=== PATIENT | male | born 1965 | race Caucasian/White ===

== ENCOUNTER 2018-02-05 13:09 | Emergency (ER) | payer OTHER ==
[2018-02-05 13:20] VITALS: BP 138/84; PULSE 62; TEMP 98.4; BMI 24.7
[2018-02-05] MEDS ORDERED: LORATADINE 10 MG TABLET PO ONE (13:45)
--- NOTE | 2018-02-05 13:48 | PDOC ---
History of Present Illness - General Chief Complaint: Bite Stated Complaint: BUG BITE Time Seen by Provider: 02/05/18 13:36 History Source: Patient Exam Limitations: No Limitations - History of Present Illness Initial Comments: 02/05/18 13:50 This is a 50-year-old male without medical history who presents emergency departments with insect bites to his right arm sustained on . Patient states Sandys if she throughout the day yesterday but woke up this morning with some swelling and mild erythema which made him nervous. Patient has not taken any medication. Patient denies any fevers, chills, shortness of breath arm pain or decreased range of motion. Past History - Past Medical History Allergies/Adverse Reactions: Allergies Allergy/AdvReac Type Severity Reaction Status Date / Time No Known Allergies Allergy Verified 02/05/18 13:19 Home Medications: Ambulatory Orders hydrOXYzine HCL [Atarax -] 25 mg PO TID #21 tablet 02/05/18 Asthma: Yes COPD: No - Suicide/Smoking/Psychosocial Hx Smoking History: Never smoked Review of Systems - Review of Systems Able to Perform ROS?: Yes Is the patient limited British proficient: No Integumentary: Yes: See HPI All Other Systems: Reviewed and Negative *Physical Exam - Vital Signs Last Vital Signs Temp Pulse Resp BP Pulse Ox 98.4 F 62 18 138/84 99 02/05/18 13:17 02/05/18 13:17 02/05/18 13:17 02/05/18 13:17 02/05/18 13:17 - Physical Exam General Appearance: Yes: Appropriately Dressed. No: Apparent Distress Musculoskeletal: positive: Normal Inspection. negative: CVA Tenderness, Decreased Range of Motion Integumentary: positive: Other (Multiple bug bites noted to dorsum of the right hand and circumferential around the forearm extending to the elbow) Medical Decision Making - Medical Decision Making 02/05/18 13:48 A/P: 52-year-old male without significant medical history with insect bites to his right hand and forearm. Multiple insect bites noted to right hand and right forearm. Mild erythema consistent with histamine reaction noted Minor swelling noted to hand and elbow consistent with histamine reaction Patient has not taken any medications Patient with insect bites to hands with subsequent histamine reaction Claritin 10 mg orally now Discharge home with prescription for Atarax instructions to apply hydrocortisone ointment as needed. Strict return precautions discussed with patient verbalizes understanding. *DC/Admit/Observation/Transfer Diagnosis at time of Disposition: Insect bites Qualifiers: Encounter type: initial encounter Qualified Code(s): W57.XXXA - Bitten or stung by nonvenomous insect and other nonvenomous arthropods, initial encounter - Discharge Dispostion Disposition: HOME Condition at time of disposition: Stable Decision to Admit order: No - Prescriptions Prescriptions: hydrOXYzine HCL [Atarax -] 25 mg PO TID #21 tablet - Referrals - Patient Instructions Printed Discharge Instructions: How to Care for an Insect Bite or Sting Additional Instructions: Take hydroxyzine as as needed for itching and redness You may apply [id number] hydrocortisone ointment to affected areas. If he began to experience fevers, chills, worsening redness, red streaks on your arm return to emergency department for reevaluation. Thank you very much for choosing us to provide your emergent health care needs. - Post Discharge Activity
[2018-02-05] MEDS ORDERED: LORATADINE 10 MG TABLET ONE (13:56)
== END 2018-02-05 13:59 | disposition home or self-care (01) ==
LOC: JER 13:09 → JERFT 13:09
DX: S60.562A Insect bite (nonvenomous) of left hand, initial encounter (principal); S50.862A Insect bite (nonvenomous) of left forearm, initial encounter; W57.XXXA Bitten or stung by nonvenomous insect and other nonvenomous arthropods, initial encounter; Y93.89 Activity, other specified; Y92.89 Other specified places as the place of occurrence of the external cause; Y99.8 Other external cause status
CPT/HCPCS: 99281-25